=== PATIENT | female | born 1975 | race Caucasian/White ===

== ENCOUNTER 2016-10-11 17:32 | Emergency (ER) | payer BC ==
[~2016-10-11] VITALS: Ht 160 cm; Wt 61.3 kg
[~2016-10-11 17:32] MED LIST: FLEXERIL10 MG PO; MEDROL DOSEPAK4 MG PO; PERCOCET 5/31 TABLET PO; PRENATAL TABLE1 EAC3 PO; ZOFRAN4 MG PO
[2016-10-11] MEDS ORDERED: PREDNISONE10 MG PO (19:44)
[2016-10-11] MEDS ORDERED: PEPCID20 MG PO (19:44)
[2016-10-11] MEDS ORDERED: BENADRYL50 MG PO (19:44)
[2016-10-11] MEDS ORDERED: EPIPEN ADU0.3 MG/0.3 IM (19:44)
[2016-10-11 19:59] VITALS: BP 113/81
== END 2016-10-11 20:08 | disposition home or self-care (01) ==
LOC: EME 17:32
DX: T63.481A Toxic effect of venom of other arthropod, accidental (unintentional), initial encounter (principal)
CPT/HCPCS: 99281; 99285; J1200; J7030; S0028

== ENCOUNTER 2016-10-22 19:03 | Emergency (ER) | payer BC ==
[~2016-10-22] VITALS: Ht 170.2 cm; Wt 63.6 kg
[~2016-10-22 19:03] MED LIST changes: +BENADRYL50 MG PO; +EPIPEN ADU0.3 MG/0.3 IM; +PEPCID20 MG PO; +PREDNISONE10 MG PO
[2016-10-22 20:37] VITALS: BP 106/73
[2016-10-22] MEDS ORDERED: PREDNISONE20 MG PO (20:45)
== END 2016-10-22 20:45 | disposition home or self-care (01) ==
LOC: EME 19:03
DX: T63.441A Toxic effect of venom of bees, accidental (unintentional), initial encounter (principal)
CPT/HCPCS: 99281; 99284